=== PATIENT | male | born 1985 | race African-American/Black ===

== ENCOUNTER 2016-04-25 23:32 | Emergency (ER) | payer OTHER ==
[~2016-04-25] VITALS: Ht 188 cm; Wt 83.3 kg
[2016-04-26 00:26] LABS: HEMATOCRIT 37.4 % (38.0-50.0); MCH 28.5 PG (29.0-34.0); MCHC 33.4 G/DL (30.0-36.0); MCV 85.4 FL (86-99); MEAN PLAT.VOLUME 10.4 uM^3 (9.0-12.4); PLATELET COUNT 258 K/uL (156-360); RBC DIS.WIDTH-CV 12.9 % (11.8-14.6); RBC DIS.WIDTH-SD 39.8 % (39-53); RED BLOOD COUNT 4.38 M/uL (4.00-5.50); WHITE BLOOD COUNT 6.5 K/uL (4.1-10.2)
[2016-04-26 00:30] LABS: CHLORIDE 108 mEq/L (99-109); POTASSIUM 3.8 mEq/L (3.7-5.4); SODIUM 140 mEq/L (136-147)
[2016-04-26 00:32] LABS: GLUCOSE 83 mg/dL (70-99)
[2016-04-26 00:33] LABS: ANION GAP 8 MEQ/L (2-14)
[2016-04-26 00:36] LABS: GFR ESTIMATE (CALCULATED) > 59 mL/min/; UREA NITROGEN (BUN) 12 mg/dL (9-23)
[2016-04-26 00:43] LABS: TROP-I INTERPRETATION NEGATIVE; TROPONIN-I < 0.01 ng/mL (0.0-0.30)
[2016-04-26 02:40] VITALS: BP 112/68
[2016-04-26 10:05] LABS: LYME DISEASE SEROLOGY SCREEN NEGATIVE (NEGATIVE)
== END 2016-04-26 03:23 | disposition short-term general hospital (02) ==
LOC: EDBD 23:32 → EME 23:32
PROVIDERS: Emergency Medicine
DX: I44.2 Atrioventricular block, complete (principal); J45.909 Unspecified asthma, uncomplicated
CPT/HCPCS: 71010; 80048; 84484; 85027; 86618; 93005; 99281; 99285